=== PATIENT | male | born 1945 | race Caucasian/White ===

== ENCOUNTER 2017-05-22 12:06 | Emergency (ER) | payer MEDICARE, OTHER ==
--- NOTE | 2017-05-22 12:24 | ERNOTE ---
Trauma/Assault HPI - Narrative Date of Service: 05/22/17 - General Stated Complaint: FALL Time Seen by Provider: 05/22/17 12:16 Source: patient Exam Limitations: no limitations - Immun/Allergies/Home Medications Allergies/Adverse Reactions: Allergies Penicillins Allergy (Verified 05/22/17 12:22) - History of Present Illness Narrative: 71 WM brought by EMS following a fall. 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 He went to cross a sideway which was uneven and he tripped. Fell forward striking his left frontal area. No LOC. States that school officials would not let him get up. Ambulance was called and he was transported. On arrival he had minimal discomfort over his left frontal area and denied any other location of pain or discomfort. Has had no vision changes, CP, neck pain, hip or knee pain. Location Occurred: Reports: school Pain Location: Reports: none Review of Systems - Review of Systems Constitutional: Present: no symptoms reported EYE: Present: no symptoms reported ENT: Present: no symptoms reported Respiratory: Present: no symptoms reported Cardiology: Present: no symptoms reported Gastrointestinal/Abdominal: Present: no symptoms reported Musculoskeletal: Present: no symptoms reported Neurological: Present: no symptoms reported Physical Exam - Physical Exam General Appearance: Present: wd/wn, alert, no apparent distress Head Exam: Present: normal inspection, other - slight swelling left superior frontal area Eye Exam: PERRL: bilateral, EOMI: bilateral Ears, Nose, Throat: Present: normal ENT inspection Neck: Present: normal inspection, nontender, full range of motion Respiratory: Present: no respiratory distress, normal breath sounds, chest nontender Cardiovascular/Chest: Present: regular rate, rhythm, no murmur Gastrointestinal/Abdominal: Present: nontender, soft Back Exam: Present: normal inspection, no CVA tenderness, no vertebral tenderness Extremity Exam: Present: normal inspection, non-tender, normal range of motion Neurological Exam: Present: alert, oriented, no motor/sensory deficits, training specialist II- XII nml as tested Skin Exam: Present: normal color, warm/dry - C-Spine cleared by: Neg history & exam - T, L-Spine cleared by: Neg hx and exam ED Progress - Vital Signs Patient's Vital Signs:: I have reviewed the patient's vital signs. - Progress/Reassessment Progress:: Unchanged Progress Note-Subjective: 05/22/17 12:57 Patient ambulated without difficulty. Denies any symptoms including diplobia, lightheadedness, N&V. Plan - Plan Plan: Reviewed likelihood of concussion and detailed post-concussive syndrome. Departure Clinical Impression: Fall, Concussion - Departure Disposition: Home self-care Condition: Good Instructions: Post-Concussion Syndrome, Head Injury, Adult, [id number] Additional Instructions: No physical activity for 5-7 days. If post-concussive syndrome symptoms occur, rest and follow up with PCP If acute head injury symptoms occur, return to ED for follow up. Use tylenol only for discomfort or pain.
[2017-05-22 13:24] VITALS: BP 153/87
== END 2017-05-22 13:11 | disposition home or self-care (01) ==
LOC: ER 12:06
DX: S06.0X0A Concussion without loss of consciousness, initial encounter (principal); W01.0XXA Fall on same level from slipping, tripping and stumbling without subsequent striking against object, initial encounter; Y93.89 Activity, other specified; Y92.219 Unspecified school as the place of occurrence of the external cause; Y99.0 Civilian activity done for income or pay